=== PATIENT | female | born 1990 | race Caucasian/White ===

== ENCOUNTER → 2016-06-05 | Day surgery (SDC) | payer OTHER ==
[~2016-06-05] MED LIST: ACID REDUCER150 MG PO; BENADRYL25 MG PO; BUSPAR 10MG10 MG PO; OMEPRAZOLE20 MG PO; VALACYCLOVIR500 MG PO
== END | disposition home or self-care (01) ==
LOC: OR 08:01
PROVIDERS: Internal Medicine Gastroenterology
PROC: 0DB68ZX Excision of Stomach, Via Natural or Artificial Opening Endoscopic, Diagnostic (ICD-10-PCS; principal; 2016-06-05 11:45)
DX: K29.50 Unspecified chronic gastritis without bleeding (principal); K21.9 Gastro-esophageal reflux disease without esophagitis; J45.909 Unspecified asthma, uncomplicated; M08.00 Unspecified juvenile rheumatoid arthritis of unspecified site; E66.3 Overweight; F41.9 Anxiety disorder, unspecified; F17.210 Nicotine dependence, cigarettes, uncomplicated; Z68.29 Body mass index [BMI] 29.0-29.9, adult; Z87.440 Personal history of urinary (tract) infections; Z87.442 Personal history of urinary calculi; Z83.3 Family history of diabetes mellitus; Z82.49 Family history of ischemic heart disease and other diseases of the circulatory system; Z79.899 Other long term (current) drug therapy; Z90.89 Acquired absence of other organs; Z98.890 Other specified postprocedural states
CPT/HCPCS: 84703; J2250; J3010; J7030